=== PATIENT | female | born 2000 ===

== ENCOUNTER 2021-01-23 16:30 | Emergency (ER) | payer SELFPAY | END 2021-01-23 17:50 | disposition left against medical advice (07) | LOC: ER 16:30 | DX: T24.011A Burn of unspecified degree of right thigh, initial encounter (principal); Z53.21 Procedure and treatment not carried out due to patient leaving prior to being seen by health care provider; Y92.89 Other specified places as the place of occurrence of the external cause | CPT/HCPCS: 99285-25 ==